=== PATIENT | female | born 1960 | race Caucasian/White ===

== ENCOUNTER → 2016-12-25 | Outpatient (CLI) | payer OTHER ==
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
== END | disposition home or self-care (01) ==
LOC: KCIC MRI 08:25
PROVIDERS: ATTEND Physician Assistant Surgical
DX: M48.02 Spinal stenosis, cervical region (principal); M50.321 Other cervical disc degeneration at C4-C5 level; M50.322 Other cervical disc degeneration at C5-C6 level
CPT/HCPCS: 72141

== ENCOUNTER 2018-08-19 11:56 | Emergency (ER) | payer OTHER ==
[~2018-08-19] VITALS: Ht 172.7 cm; Wt 76.7 kg
[2018-08-19 12:32] LABS: BASO # 0.1 x10^3/uL (0.0-0.2); BASO % 1 % (0-3); EOS # 0.1 x10^3/uL (0.0-0.7); EOS % 1 % (0-3); HEMATOCRIT 45.3 % (36.0-47.0); HEMOGLOBIN 15.6 g/dL (12.0-15.5); LYMPH # 1.9 x10^3/uL (1.0-4.8); LYMPH % 21 % (24-48); MEAN CORPUSCULAR HEMOGLOBIN 32 pg (25-35); MEAN CORPUSCULAR HGB CONC 34 g/dL (31-37); MEAN CORPUSCULAR VOLUME 92 fL (79-100); MONO # 0.5 x10^3/uL (0.0-1.1); MONO % 6 % (0-9); NEUT # 6.3 x10^3uL (1.8-7.7); NEUT % 71 % (31-73); PLATELET COUNT 197 x10^3/uL (140-400); RED BLOOD COUNT 4.94 x10^6/uL (3.50-5.40); WHITE BLOOD COUNT 8.9 x10^3/uL (4.0-11.0)
[2018-08-19 12:40] LABS: CALCIUM 9.6 mg/dL (8.5-10.1); CREATININE 0.8 mg/dL (0.6-1.0); GFR 73.9; POTASSIUM 4.2 mmol/L (3.5-5.1)
[2018-08-19 12:51] LABS: ALBUMIN 4.3 g/dL (3.4-5.0); ALBUMIN/GLOBULIN RATIO 1.2 (1.0-1.7); TOTAL BILIRUBIN 0.8 mg/dL (0.2-1.0); TOTAL PROTEIN 7.9 g/dL (6.4-8.2)
--- NOTE | 2018-08-19 13:05 | RAD ---
Portable chest, 08/19/2018: HISTORY: Chest pain, shortness of breath The heart size and pulmonary vascularity are normal. No pulmonary infiltrate is seen. There is no evidence of pleural fluid. IMPRESSION: No acute cardiopulmonary abnormality is detected. Electronically signed by: Kilo Mckeon MD (08/19/2018 1:01 PM) [facility]
--- NOTE | 2018-08-19 13:11 | EKG ---
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
--- NOTE | 2018-08-19 13:53 | PHYS DOC ---
Past Medical History Past Medical History: Arthritis, GERD, High Cholesterol Past Surgical History: Tonsillectomy, Tubal ligation Alcohol Use: Occasionally Drug Use: None Adult General Chief Complaint Chief Complaint: SHORTNESS OF BREATH HPI HPI 58-year-old female presents secondary to difficulty getting a deep breath. Patient states she has quite a bit of anxiety. She denies any chest pain or dyspnea on exertion. She denies any cough or congestion. She denies hemoptysis. She denies any leg swelling. She has not been on any long car ride she does not take hormones and she does not smoke. She states she did go to urgent care today and they noted that her oxygen level was low so they sent her here for evaluation. When asked what her oxygen level was at the urgent care she says it was 97%.[] Review of Systems Review of Systems Constitutional: Denies fever or chills [] Eyes: Denies change in visual acuity, redness, or eye pain [] HENT: Denies nasal congestion or sore throat [] Respiratory: Per history of present illness[] Cardiovascular: No additional information not addressed in HPI [] GI: Denies abdominal pain, nausea, vomiting, bloody stools or diarrhea [] : Denies dysuria or hematuria [] Musculoskeletal: Denies back pain or joint pain [] Integument: Denies rash or skin lesions [] Neurologic: Denies headache, focal weakness or sensory changes [] Endocrine: Denies polyuria or polydipsia [] All other systems were reviewed and found to be within normal limits, except as documented in this note. Allergies Allergies Allergies Coded Allergies Type Severity Reaction Last Updated Verified No Known Drug Allergies 08/19/18 No Physical Exam Physical Exam Constitutional: Well developed, well nourished, no acute distress, non-toxic appearance. [] HENT: Normocephalic, atraumatic, bilateral external ears normal, oropharynx moist, no oral exudates, nose normal. [] Eyes: PERRLA, EOMI, conjunctiva normal, no discharge. [] Neck: Normal range of motion, no tenderness, supple, no stridor. [] Cardiovascular:Heart rate regular rhythm, no murmur [] Lungs & Thorax: Bilateral breath sounds clear to auscultation [] Abdomen: Bowel sounds normal, soft, no tenderness, no masses, no pulsatile masses. [] Skin: Warm, dry, no erythema, no rash. [] Back: No tenderness, no CVA tenderness. [] Extremities: No tenderness, no cyanosis, no clubbing, ROM intact, no edema. [] Neurologic: Alert and oriented X 3, normal motor function, normal sensory function, no focal deficits noted. [] Psychologic: Very anxious[] Current Patient Data Vital Signs Vital Signs Date Time Temp Pulse Resp B/P (MAP) Pulse Ox O2 Delivery O2 Flow Rate FiO2 08/19/18 13:00 61 18 151/90 (110) 96 Room Air 08/19/18 12:04 98.1 98.1 Lab Values Laboratory Tests Test 08/19/18 12:20 White Blood Count 8.9 x10^3/uL (4.0-11.0) Red Blood Count 4.94 x10^6/uL (3.50-5.40) Hemoglobin 15.6 g/dL (12.0-15.5) H Hematocrit 45.3 % (36.0-47.0) Mean Corpuscular Volume 92 fL (79-100) Mean Corpuscular Hemoglobin 32 pg (25-35) Mean Corpuscular Hemoglobin Concent 34 g/dL (31-37) Red Cell Distribution Width 13.0 % (11.5-14.5) Platelet Count 197 x10^3/uL (140-400) Neutrophils (%) (Auto) 71 % (31-73) Lymphocytes (%) (Auto) 21 % (24-48) L Monocytes (%) (Auto) 6 % (0-9) Eosinophils (%) (Auto) 1 % (0-3) Basophils (%) (Auto) 1 % (0-3) Neutrophils # (Auto) 6.3 x10^3uL (1.8-7.7) Lymphocytes # (Auto) 1.9 x10^3/uL (1.0-4.8) Monocytes # (Auto) 0.5 x10^3/uL (0.0-1.1) Eosinophils # (Auto) 0.1 x10^3/uL (0.0-0.7) Basophils # (Auto) 0.1 x10^3/uL (0.0-0.2) D-Dimer (Charito) 0.29 ug/mlFEU (0.00-0.50) Sodium Level 140 mmol/L (136-145) Potassium Level 4.2 mmol/L (3.5-5.1) Chloride Level 103 mmol/L (98-107) Carbon Dioxide Level 25 mmol/L (21-32) Anion Gap 12 (6-14) Blood Urea Nitrogen 12 mg/dL (7-20) Creatinine 0.8 mg/dL (0.6-1.0) Estimated GFR (Cockcroft-Gault) 73.9 BUN/Creatinine Ratio 15 (6-20) Glucose Level 109 mg/dL (70-99) H Calcium Level 9.6 mg/dL (8.5-10.1) Total Bilirubin 0.8 mg/dL (0.2-1.0) Aspartate Amino Transferase (AST) 26 U/L (15-37) Alanine Aminotransferase (ALT) 36 U/L (14-59) Alkaline Phosphatase 117 U/L (46-116) H Troponin I Quantitative < 0.017 ng/mL (0.000-0.055) VS-[id number]-Type Natriuretic Peptide 45 pg/mL (0-124) Total Protein 7.9 g/dL (6.4-8.2) Albumin 4.3 g/dL (3.4-5.0) Albumin/Globulin Ratio 1.2 (1.0-1.7) Laboratory Tests 08/19/18 12:20 Laboratory Tests 08/19/18 12:20 EKG EKG [] Radiology/Procedures Radiology/Procedures [] Impressions: PROCEDURE: CHEST AP ONLY Portable chest, 08/19/2018: HISTORY: Chest pain, shortness of breath The heart size and pulmonary vascularity are normal. No pulmonary infiltrate is seen. There is no evidence of pleural fluid. IMPRESSION: No acute cardiopulmonary abnormality is detected. Course & Med Decision Making Course & Med Decision Making Pertinent Labs and Imaging studies reviewed. (See chart for details) ED course: Evaluation reveals an anxious 58-year-old female in absolutely no respiratory distress. Her lungs were clear physical exam other than being anxious was entirely unremarkable. I did talk through this with the patient and she agreed that this was likely related to her anxiety. Her blood work did not show any evidence of cardiac involvement and her d-dimer was negative essentially ruling out a pulmonary embolus. Her chest x-ray was also clear. I feel the patient is stable for discharge home at this time[] Dragon Disclaimer Dragon Disclaimer This electronic medical record was generated, in whole or in part, using a voice recognition dictation system. Departure Departure Impression: Primary Impression: Dyspnea Additional Impression: Anxiety about health Disposition: 01 HOME, SELF-CARE Condition: STABLE Referrals: ROM BENNETT (PCP) Patient Instructions: Anxiety and Panic Attacks, Shortness of Breath Additional Instructions: Return to the emergency department with any new or concerning symptoms Problem Qualifiers Primary Impression: Dyspnea Dyspnea type: unspecified Qualified Codes: R06.00 - Dyspnea, unspecified HARRIETT NIELSEN DO Aug 19, 2018 13:53
[2018-08-19 14:00] VITALS: BP 161/88
== END 2018-08-19 14:00 | disposition home or self-care (01) ==
LOC: ER 11:56
DX: R06.00 Dyspnea, unspecified (principal); F41.9 Anxiety disorder, unspecified; R07.89 Other chest pain; K21.9 Gastro-esophageal reflux disease without esophagitis; E78.00 Pure hypercholesterolemia, unspecified
CPT/HCPCS: 36415; 71045; 80053; 83880; 84484; 85025; 85379; 93005; 99284-25

== ENCOUNTER → 2020-12-05 | Outpatient (CLI) | payer OTHER ==
--- NOTE | 2020-12-05 14:20 | RAD ---
XR CHEST 2V History: Reason: STERNUM PAIN, PT STATES HAS A STERNAL KNOT, PAIN, DENIES INJURY/TRAUMA / Spl. Instru ctions: / History: Comparison: 08/19/2018 Technique: PA and lateral chest radiographs. Findings: The lungs are adequately and symmectrically inflated. No airspace consolidation, pleural effusion or pneumothorax. The cardiomediastinal silhoutte and pulmonary vasculature are within normal limits. Sof t tissues and osseous structures are unremarkable. Impression: 1. No acute cardiopulmonary process. 2. If there is persistent clinical concern, CT may be more sensitive for osseous lesion of the courtney um. Electronically signed by: Dante Melton MD (12/05/2020 2:18 PM) [facility]
== END ==
LOC: RAD 09:24
PROVIDERS: ATTEND Nurse Practitioner Gerontology
DX: R07.89 Other chest pain (principal)
CPT/HCPCS: 71046

== ENCOUNTER → 2021-01-30 | Outpatient (CLI) | payer OTHER ==
--- NOTE | 2021-01-30 14:53 | RAD ---
EXAM: Chest CT without intravenous contrast. HISTORY: Sternum pain. TECHNIQUE: Computed tomographic images of the chest were obtained without contrast. Multiplanar refor matting was performed. *One or more of the following individualized dose reduction techniques were utilized for this examina tion: 1. Automated exposure control. 2. Adjustment of the mA and/or kV according to patient size. 3. Use of iterative reconstruction technique. COMPARISON: None. FINDINGS: There is no pneumothorax or pleural effusion. There is no infiltrate. There is mild biapica l pleural parenchymal scarring and subpleural bleb formation. There are few tiny right apical pleural -based nodules which are likely due to aforementioned scarring or subsegmental atelectasis. No suspic ious nodule is seen. The heart is normal in size. The aorta is normal in caliber. There is no lymphad enopathy. There is no acute finding involving the upper abdomen. There is degenerative change involvi ng the mid and lower cervical spine. There is no acute or suspicious osseous lesion. There is mild in cidental vacuum phenomenon involving the right sternoclavicular joint. IMPRESSION: No acute thoracic finding. Electronically signed by: Lily Glaser MD (01/30/2021 2:51 PM) [id number]
== END ==
LOC: CT 12:49
PROVIDERS: ATTEND Nurse Practitioner Gerontology
DX: R07.2 Precordial pain (principal)
CPT/HCPCS: 71250